=== PATIENT | female | born 2000 | race Hispanic/Latino ===

== ENCOUNTER 2020-01-02 16:01 | Inpatient (IN) | payer OTHER ==
[~2020-01-02 16:01] MED LIST: Bupivacaine 0.25% 10 ML VIAL ONE
[2020-01-02] MEDS ORDERED: Ondansetron PF 4 MG/2 ML Vial IVP PRN (16:26)
[2020-01-02] MEDS ORDERED: hydrALAZINE 20 MG/ML VIAL SLOW IVP PRN (16:26)
[2020-01-02] MEDS ORDERED: NS / Oxytocin 40 units/1000ml 1,000 ML IV PRN (16:26)
[2020-01-02] MEDS ORDERED: Promethazine HCl 25 MG/ML VIAL IM PRN (16:26)
[2020-01-02] MEDS ORDERED: Lidocaine 1% (PF) 30 ML VIAL SC PRN (16:26)
[2020-01-02] MEDS ORDERED: Ibuprofen 800 MG TAB PO PRN (16:26)
[2020-01-02] MEDS ORDERED: HYDROcodone/Acetaminophen 5/325 mg Tablet PO PRN ×2 (16:26)
[2020-01-02] MEDS ORDERED: Butorphanol Tartrate 1 MG/ML VIAL SLOW IVP PRN (16:26)
--- NOTE | 2020-01-02 16:28 | PDOC.EVN ---
Event Note - Event Note Event Note: Asked to place courtesy orders for admit. Orders only. Patient not seen by me. Stated GBS neg per RN
[2020-01-02 16:33] VITALS: BMI 40.7
[2020-01-02] MEDS: Lactated Ringer's 1,000 ML IV SCH (17:00)
[2020-01-02 17:23] LABS: Hemoglobin 11.6 g/dL (12.0-16.0); Mean Corpuscular HGB CONC 34.3 g/dL (32.0-36.0); Mean Corpuscular Hemoglobin 28.6 pg (25.0-35.0); Mean Corpuscular Volume 83.4 fL (78.0-98.0); Mean Platelet Volume 9.5 fL (7.4-10.4); Platelet Count 231 thou/uL (130-400); RBC Distribution Width 13.3 % (11.5-14.5); Red Blood Cell (RBC) Count 4.05 mill/uL (4.00-5.20); White Blood Cell (WBC) Count 10.5 thou/uL (4.8-10.8)
[2020-01-02] MEDS: Misoprostol 100 MCG TAB VAG SCH (17:25)
[2020-01-02 17:59] LABS: HIV (1/2) Antibody/Antigen Non-Reactive (NonReactive); HIV 1/2 INDEX 0.11 S/CO (<1.00); Hep B Surf Ag Non-Reactive S/CO (NonReactive)
[2020-01-02 18:06] LABS: Syphilis Antibody Nonreactive (Nonreactive); Syphilis Antibody Index 0.05 S/CO (<1.00 Non-Reactive)
[2020-01-03] MEDS: Lactated Ringer's 1,000 ML IV SCH ×3 (00:23→20:15)
[2020-01-03] MEDS: Misoprostol 100 MCG TAB VAG SCH ×2 (00:25→20:13)
[2020-01-03] MEDS ORDERED: NS w/ Oxytocin 10 units 500 ML ONE (08:14)
[2020-01-03] MEDS ORDERED: Methylergonovine 0.2 MG/ML VIAL IM PRN (08:27)
[2020-01-03] MEDS ORDERED: NS / Oxytocin 40 units/1000ml 1,000 ML IV PRN (08:27)
[2020-01-03] MEDS ORDERED: Carboprost 250 MCG/ML AMP IM PRN (08:27)
[2020-01-03] MEDS ORDERED: Diphenoxylate HCl/Atropine Tablet PO PRN (08:27)
[2020-01-03] MEDS ORDERED: Misoprostol 200 MCG TAB PR PRN (08:27)
[2020-01-03] MEDS ORDERED: NS w/ Oxytocin 10 units 500 ML IV SCH ×2 (08:30)
[2020-01-03] MEDS ORDERED: Fentanyl 4 mcg/Bup 0.1% Cadd 100 ML ONE (08:43)
[2020-01-03] MEDS ORDERED: Acetaminophen 325 MG TAB PO PRN (09:09)
[2020-01-03] MEDS ORDERED: Lactated Ringer's 500 ML IV PRN (09:09)
[2020-01-03] MEDS ORDERED: diphenhydrAMINE 50 MG/ML VIAL IVP PRN (09:09)
[2020-01-03] MEDS ORDERED: Promethazine HCl 25 MG/ML VIAL IM PRN ×2 (09:09→18:26)
[2020-01-03] MEDS ORDERED: Naloxone HCl 0.4 mg/ml Vial IVP PRN ×2 (09:09)
[2020-01-03] MEDS ORDERED: EPHEDRINE 25 MG/5 ML SYRINGE SLOW IVP PRN (09:09)
[2020-01-03] MEDS ORDERED: Ondansetron PF 4 MG/2 ML Vial IVP PRN ×2 (09:09→18:26)
[2020-01-03] MEDS ORDERED: Fentanyl 4 mcg/Bupivacaine 0.1% Cassette 100 ML EPIDURAL SCH (09:15)
[2020-01-03] MEDS ORDERED: Communication Order-Pharmacy FS SCH (09:15)
[2020-01-03] MEDS ORDERED: Fentanyl 100 MCG/2 ML VIAL ONE (14:41)
[2020-01-03] MEDS ORDERED: NS / Oxytocin 40 units/1000ml 1,000 ML IV SCH (18:26)
[2020-01-03] MEDS ORDERED: Preparation H Ointment 28 GM TUBE PR PRN (18:26)
[2020-01-03] MEDS ORDERED: Bisacodyl 10 MG SUPP PR PRN (18:26)
[2020-01-03] MEDS ORDERED: hydrALAZINE 20 MG/ML VIAL SLOW IVP PRN (18:26)
[2020-01-03] MEDS ORDERED: Lanolin Ointment 7 GM TUBE TOP PRN (18:26)
[2020-01-03] MEDS ORDERED: HYDROcodone/Acetaminophen 5/325 mg Tablet PO PRN ×2 (18:26)
[2020-01-03] MEDS ORDERED: diphenhydrAMINE 25 MG CAP PO PRN (18:26)
[2020-01-03] MEDS ORDERED: Milk Of Magnesia 30 ML UDCUP PO PRN (18:26)
[2020-01-03] MEDS ORDERED: Benzocaine-Menthol 82.5 ML CAN TOP PRN (18:26)
[2020-01-03] MEDS: Ibuprofen 800 MG TAB PO SCH (22:03)
[2020-01-03] MEDS: Docusate Calcium (SURFAK) 240 MG CAP PO SCH (22:03)
[2020-01-04] MEDS: Ibuprofen 800 MG TAB PO SCH ×3 (05:10→21:59)
[2020-01-04 06:07] LABS: Hemoglobin 11.3 g/dL (12.0-16.0); Mean Corpuscular HGB CONC 33.9 g/dL (32.0-36.0); Mean Corpuscular Hemoglobin 28.7 pg (25.0-35.0); Mean Corpuscular Volume 84.6 fL (78.0-98.0); Mean Platelet Volume 9.9 fL (7.4-10.4); Platelet Count 195 thou/uL (130-400); RBC Distribution Width 13.2 % (11.5-14.5); Red Blood Cell (RBC) Count 3.95 mill/uL (4.00-5.20); White Blood Cell (WBC) Count 15.4 thou/uL (4.8-10.8)
[2020-01-04] MEDS: Ferrous Sulfate 325 MG TAB PO SCH ×2 (07:58→17:21)
[2020-01-04] MEDS: Prenatal Vitamin 1 TAB PO SCH (08:42)
[2020-01-04] MEDS: Docusate Calcium (SURFAK) 240 MG CAP PO SCH ×2 (08:42→21:59)
[2020-01-04] MEDS ORDERED: Adacel (T-DAP) 0.5 ML SYRINGE IM ONE (09:00)
[2020-01-05] MEDS: Ibuprofen 800 MG TAB PO SCH (05:23)
[2020-01-05 08:18] VITALS: BP 134/64; TEMP 98.4
[2020-01-05] MEDS: Ferrous Sulfate 325 MG TAB PO SCH (08:32)
[2020-01-05] MEDS: Docusate Calcium (SURFAK) 240 MG CAP PO SCH (08:34)
[2020-01-05] MEDS: Prenatal Vitamin 1 TAB PO SCH (08:34)
== END 2020-01-05 11:22 | disposition home or self-care (01) | DRG 805 ==
LOC: MERGE 16:01 → L&D 16:01 → 3SW 01-03 19:42
PROVIDERS: ADMIT Family Medicine; ATTEND Family Medicine
PROC: 10E0XZZ Delivery of Products of Conception, External Approach (ICD-10-PCS; principal; 2020-01-02)
PROC: 10907ZC Drainage of Amniotic Fluid, Therapeutic from Products of Conception, Via Natural or Artificial Opening (ICD-10-PCS; 2020-01-02)
PROC: 3E0P7VZ Introduction of Hormone into Female Reproductive, Via Natural or Artificial Opening (ICD-10-PCS; 2020-01-02)
PROC: 3E033VJ Introduction of Other Hormone into Peripheral Vein, Percutaneous Approach (ICD-10-PCS; 2020-01-02)
PROC: 0HQ9XZZ Repair Perineum Skin, External Approach (ICD-10-PCS; 2020-01-02)
DX: O26.62 Liver and biliary tract disorders in childbirth (principal); K83.1 Obstruction of bile duct; Z37.0 Single live birth; O70.0 First degree perineal laceration during delivery; Z3A.36 36 weeks gestation of pregnancy
CPT/HCPCS: 36415; 51702; 85027; 86780; 86850; 86900; 86901; 87340; 87389; J2590; J3010; S0020

== ENCOUNTER 2023-04-30 09:53 | Emergency (ER) | payer OTHER, BC | END 2023-04-30 11:42 | disposition home or self-care (01) | LOC: ERS 09:53 | DX: M25.571 Pain in right ankle and joints of right foot (principal); W01.0XXA Fall on same level from slipping, tripping and stumbling without subsequent striking against object, initial encounter ==